=== PATIENT | female | born 1990 | race Asian ===

== ENCOUNTER 2020-12-07 07:30 | Inpatient (IN) | payer OTHER ==
[2020-12-07] MEDS: ELECTROLYTE-148 SOLN 1,000 ML IV SCH (08:00)
[2020-12-07 08:29] VITALS: BMI 27.9
[2020-12-07] MEDS ORDERED: PROMETHAZINE HCL 25 MG/1 ML VIAL IVPB ONE (09:32)
[2020-12-07] MEDS ORDERED: METHYLERGONOVINE MALEATE 0.2 MG/1 ML AMP IM PRN (09:34)
[2020-12-07] MEDS ORDERED: diphenhydrAMINE HCL 25 MG CAPSULE (FP) PO PRN (09:34)
[2020-12-07] MEDS ORDERED: WITCH HAZEL 50% (TUCKS) 40 PAD/JAR PAD TP PRN (09:34)
[2020-12-07] MEDS ORDERED: BENZOCAINE 20% 57 GM BOTTLE TP PRN (09:34)
[2020-12-07] MEDS ORDERED: BENZOCAINE 28 GM HEMORRHOIDAL OINTMENT RC PRN (09:34)
[2020-12-07] MEDS ORDERED: PROPOFOL 20 ML ONE (09:55)
[2020-12-07] MEDS ORDERED: ONDANSETRON 4 MG/2 ML VIAL ONE ×2 (09:55→10:34)
[2020-12-07] MEDS ORDERED: ePHEDrine SULFATE 50 MG/1 ML AMPULE ONE (09:55)
[2020-12-07] MEDS ORDERED: OXYTOCIN 10 UNITS/ML VIAL ONE ×2 (09:55→10:34)
[2020-12-07] MEDS ORDERED: ceFAZolin SODIUM 1 GM VIAL ONE ×2 (10:13→10:34)
[2020-12-07] MEDS ORDERED: KETOROLAC TROMETHAMINE 30 MG/1 ML VIAL ONE (10:34)
[2020-12-07 11:34] LABS: CORD BASE EXCESS -2.6 mmol/L (0-2); CORD HCO3 24.5 mmHg (20-29); CORD PCO2 50.6 mmHg (30-78); CORD pH 7.302 (7.14-7.44)
[2020-12-07 11:36] LABS: CORD HCO3 22.5 mmHg (20-29); CORD pH 7.347 (7.14-7.44)
[2020-12-07] MEDS: IBUPROFEN 800 MG/8 ML IJ IVPB PRN (16:53)
[2020-12-08] MEDS: IBUPROFEN 800 MG/8 ML IJ IVPB PRN ×2 (01:10→08:45)
[2020-12-08 08:52] LABS: HEMATOCRIT 27.4 % (32.4-45.2); HEMOGLOBIN 8.9 GM/dL (10.7-15.3); MCH 20.8 pg (25.7-33.7); MCHC 32.4 g/dl (32.0-36.0); MEAN CELL VOLUME 64.2 fl (80-96); MEAN PLT VOLUME 8.9 fl (7.5-11.1); PLATELET COUNT 187 K/MM3 (134-434); RBC 4.27 M/mm3 (3.60-5.2); RDW 16.2 % (11.6-15.6)
[2020-12-08] MEDS ORDERED: oxyCODONE HCL 5 MG TABLET PO PRN ×2 (09:34)
[2020-12-08] MEDS ORDERED: BISACODYL 10 MG SUPP.RECT PR PRN (09:34)
[2020-12-08] MEDS: ELECTROLYTE-148 SOLN 1,000 ML IV SCH (09:53)
[2020-12-08] MEDS: PRENATAL VITAMINS W/ FOLIC ACID TABLET (FP) PO SCH (10:00)
[2020-12-08] MEDS: FERROUS SO4 325 MG TABLET (FP) PO SCH (17:42)
[2020-12-08] MEDS: IBUPROFEN 600 MG TABLET (FP) PO PRN ×2 (18:00→21:14)
[2020-12-08] MEDS: SIMETHICONE 80 MG TAB.CHEW (FP) PO PRN ×2 (18:00→21:16)
[2020-12-08] MEDS: ACETAMINOPHEN 325 MG TABLET (FP) PO PRN (21:14)
[2020-12-08] MEDS: SENNOSIDES/DOCUSATE COMBO (SENNA PLUS) TABLET (UD) PO PRN (21:15)
[2020-12-09] MEDS: PRENATAL VITAMINS W/ FOLIC ACID TABLET (FP) PO SCH (09:21)
[2020-12-09] MEDS: FERROUS SO4 325 MG TABLET (FP) PO SCH ×2 (09:21→16:56)
[2020-12-09] MEDS ORDERED: MISOPROSTOL 25 MCG TABLET (COMPOUNDED BY PHARMACY) PV ONE (09:24)
[2020-12-09 12:34] LABS: INR 0.82 (0.83-1.09); PROTHROMBIN TIME (PATIENT) 10.2 SEC (9.7-13.0)
[2020-12-09 12:37] LABS: ACTIVATED PTT 24.2 SECONDS (25.2-36.5)
[2020-12-09 12:55] LABS: CALCIUM 7.9 mg/dL (8.5-10.1)
[2020-12-09 12:56] LABS: BLOOD UREA NITROGEN 8.6 mg/dL (7-18)
[2020-12-09 12:59] LABS: CREATININE 0.4 mg/dL (0.55-1.3)
[2020-12-09] MEDS: IBUPROFEN 600 MG TABLET (FP) PO PRN ×2 (16:55→22:52)
[2020-12-09] MEDS: ACETAMINOPHEN 325 MG TABLET (FP) PO PRN ×2 (16:56→22:52)
[2020-12-09] MEDS: SIMETHICONE 80 MG TAB.CHEW (FP) PO PRN (22:51)
[2020-12-09] MEDS: SENNOSIDES/DOCUSATE COMBO (SENNA PLUS) TABLET (UD) PO PRN (22:53)
[2020-12-10] MEDS: IBUPROFEN 600 MG TABLET (FP) PO PRN (06:25)
[2020-12-10] MEDS: SIMETHICONE 80 MG TAB.CHEW (FP) PO PRN (06:25)
[2020-12-10] MEDS: ACETAMINOPHEN 325 MG TABLET (FP) PO PRN (06:26)
[2020-12-10 07:57] LABS: HEMATOCRIT 27.6 % (32.4-45.2); HEMOGLOBIN 8.7 GM/dL (10.7-15.3); MCH 20.7 pg (25.7-33.7); MCHC 31.4 g/dl (32.0-36.0); MEAN CELL VOLUME 65.8 fl (80-96); MEAN PLT VOLUME 8.4 fl (7.5-11.1); PLATELET COUNT 224 K/MM3 (134-434); RBC 4.19 M/mm3 (3.60-5.2); RDW 17.1 % (11.6-15.6)
[2020-12-10 08:46] VITALS: BP 108/76; PULSE 82; TEMP 98.1
[2020-12-10] MEDS: FERROUS SO4 325 MG TABLET (FP) PO SCH (09:49)
[2020-12-10] MEDS: PRENATAL VITAMINS W/ FOLIC ACID TABLET (FP) PO SCH (09:54)
== END 2020-12-10 13:40 | disposition home or self-care (01) | DRG 540 ==
LOC: JLDR 07:30 → J3W 12:40
PROVIDERS: ADMIT Obstetrics & Gynecology; ATTEND Obstetrics & Gynecology
PROC: 10D00Z1 Extraction of Products of Conception, Low, Open Approach (ICD-10-PCS; principal; 2020-12-07)
DX: O32.2XX0 Maternal care for transverse and oblique lie, not applicable or unspecified (principal); O34.03 Maternal care for unspecified congenital malformation of uterus, third trimester; Q51.3 Bicornate uterus; Z3A.39 39 weeks gestation of pregnancy; Z37.0 Single live birth
CPT/HCPCS: 36415; 36600; 80048; 82803; 85025; 85027; 85610; 85730; 86780; 86850; 86900; 86901; 87340; 88307-TC; C9803; U0003; U0005

== ENCOUNTER 2023-02-09 10:41 | Emergency (ER) | payer OTHER ==
[2023-02-09 10:51] VITALS: BP 121/80; PULSE 69; RESP 18; TEMP 98; BMI 23.3
[2023-02-09 12:16] LABS: HEMATOCRIT 33.6 % (32.4-45.2); HEMOGLOBIN 10.2 GM/dL (10.7-15.3); MCHC 30.2 g/dl (32.0-36.0); MEAN CELL VOLUME 57.5 fl (80-96); MEAN PLT VOLUME 8.7 fl (7.5-11.1); PLATELET COUNT 377 10^3/uL (134-434); RBC 5.84 M/mm3 (3.60-5.2); RDW 16.8 % (11.6-15.6); WHITE BLOOD COUNT 8.5 K/mm3 (4.0-10.0)
[2023-02-09 12:17] LABS: MCH 17.4 pg (25.7-33.7)
[2023-02-09 12:50] LABS: POTASSIUM 4.2 mmol/L (3.5-5.1)
[2023-02-09 12:52] LABS: ALBUMIN 4.1 g/dl (3.4-5.0); BLOOD UREA NITROGEN 6.9 mg/dL (7-18); CALCIUM 9.5 mg/dL (8.5-10.1)
[2023-02-09 12:56] LABS: CREATININE 0.7 mg/dL (0.55-1.3)
[2023-02-09 12:58] LABS: BILIRUBIN,TOTAL 0.7 mg/dL (0.2-1); TOT PROT 7.7 g/dl (6.4-8.2)
== END 2023-02-09 13:06 | disposition home or self-care (01) ==
LOC: JER 10:41
DX: R07.89 Other chest pain (principal)
CPT/HCPCS: 36415; 71046-TC-FY; 80053; 84484; 85027; 93005; 93010; 99285-25

== ENCOUNTER 2023-11-21 21:16 | Emergency (ER) | payer OTHER ==
[2023-11-21 21:32] VITALS: BP 118/77; PULSE 81; RESP 20; TEMP 98.3; BMI 20.5
[2023-11-21] MEDS ORDERED: guaiFENesin/D-METHORPHAN HB 10 ML UNIT-DOSE CUPS ONE (23:00)
[2023-11-21] MEDS ORDERED: guaiFENesin/D-METHORPHAN HB 10 ML UNIT-DOSE CUPS PO ONE (23:00)
== END 2023-11-21 23:02 | disposition home or self-care (01) ==
LOC: JERFT 21:16
DX: R09.81 Nasal congestion (principal); R51.9 Headache, unspecified; R05.1 Acute cough; J00 Acute nasopharyngitis [common cold]
CPT/HCPCS: 99283-25